=== PATIENT | female | born 1960 | race African-American/Black ===

== ENCOUNTER 2016-12-21 19:02 | Emergency (ER) | payer MEDICAID ==
[~2016-12-21] VITALS: Ht 170.2 cm; Wt 74.4 kg
[2016-12-21 19:08] VITALS: BP 135/84
[2016-12-21] MEDS ORDERED: Ketorolac 60mg Inj IM ONE (19:30)
[2016-12-21 20:57] VITALS: BP 123/111
--- NOTE | 2016-12-21 20:58 | Emergency Room Report ---
History of Present Illness General Chief Complaint: Multiple Trauma/Fall Source: Patient, EMS Present Illness HPI The patient was shopping in a grocery store and slipped on a liquid on the floor and fell onto her left knee. She states she has pain in her knee with movement. She fell onto her buttocks but has no pain. She does not have a head injury or head trauma. She has no other complaints. Allergies: Coded Allergies: No Known Allergies (Unverified , 12/21/16) Patient History Past Medical History: see triage record, HTN Social History: Denies: alcohol use, drug use, smoking Last Menstrual Period: 2003 Reviewed Nursing Documentation: PMH: Agreed, PSxH: Agreed Nursing Documentation-PMH Past Medical History: No History, Except For Hx Hypertension: Yes History Of Psychiatric Problem: Yes - Depression Review of Systems All Other Systems: negative except mentioned in HPI Physical Exam Vital Signs Date Time Temp Pulse Resp B/P Pulse Ox O2 Delivery O2 Flow Rate FiO2 12/21/16 18:59 99.0 78 16 135/84 98 Room Air Sp02 EP Interpretation: reviewed, normal General Appearance: no apparent distress, alert, GCS 15, non-toxic Head: normocephalic, atraumatic Eyes: bilateral eye PERRL, bilateral eye normal inspection ENT: hearing grossly normal, normal pharynx, no angioedema, normal voice Neck: full range of motion, supple/symm/no masses Respiratory: chest non-tender, lungs clear, normal breath sounds, speaking full sentences Cardiovascular #1: regular rate, rhythm, no edema Gastrointestinal: normal bowel sounds, non tender, soft, non-distended, no guarding, no rebound Rectal: deferred Musculoskeletal: back normal, normal range of motion, other - TTP over the L. patella. Neurologic: alert, oriented x3, responsive, motor strength/tone normal, sensory intact, speech normal Psychiatric: judgement/insight normal, memory normal, mood/affect normal, no suicidal/homicidal ideation Skin: normal color, no rash, warm/dry, well hydrated Medical Decision Making Diagnostic Impression: Primary Impression: Knee contusion Additional Impression: Knee strain ER Course This patient has a clinical presentation consistent with a contusion and knee strain. X-ray shows no fracture or abnormality. The patient was instructed on supportive care with ice and anti-inflammatories. I also gave the patient a knee immobilizer and crutches. She is instructed to followup with orthopedics if she continues to have pain. I did not identify an emergency medical condition. I warned the patient that plain x-rays have a significant false- negative rate. Factors, significant soft tissue injuries, and other pathology may be present even though not seen on x-ray. Injuries serious enough to ultimately require surgery may be present with normal x-rays. This can occur because some fractures or not initially visible on plain film x-rays or, rarely , the radiologist may discover a subtle fracture that I missed on my preliminary read. It was explained that close outpatient followup is required to evaluate this possibility. If all symptoms resolve or improve significantly in the coming weeks, no further testing is needed. However, if the pain/ symptoms persist, additional studies such as MRI/CT or repeat x-ray would be needed to rule out the possibility of serious soft tissue injury. The patient agreed to followup as directed. Other X-Ray Diagnostic Results Other X-Ray Diagnostic Results : X-Ray ordered: L. knee # of Views/Limited Vs Complete: 3 View Indication: Pain EP Interpretation: Yes Interpretation: no dislocation, no soft tissue swelling, no fractures Impression: No acute disease Interpreting ER Provider: Melodie Last Vital Signs Date Time Temp Pulse Resp B/P Pulse Ox O2 Delivery O2 Flow Rate FiO2 12/21/16 19:08 99.0 16 135/84 98 Room Air 12/21/16 18:59 78 Disposition: HOME, SELF-CARE Condition: Improved FANNIE GENAO D.O. Dec 21, 2016 20:58
[2016-12-21] MEDS ORDERED: IBUPROFEN600 MG ORAL (21:03)
[2016-12-21 21:46] VITALS: BP 139/83
--- NOTE | 2016-12-22 09:14 | Diagnostic Imaging Report ---
Indication: Trauma with pain Technique: XRAY KNEE THREE VIEWS LEFT Comparison: None. Findings: There is mild spurring of the medial joint compartment. Alignment is intact. No fracture. No evidence of bone destruction. There is no effusion. Impression: Minimal degenerative change. Otherwise negative.
== END 2016-12-21 21:35 | disposition home or self-care (01) ==
LOC: EDBD 19:02 → EMR 20:52
DX: S86.812A Strain of other muscle(s) and tendon(s) at lower leg level, left leg, initial encounter (principal); S80.02XA Contusion of left knee, initial encounter; W01.0XXA Fall on same level from slipping, tripping and stumbling without subsequent striking against object, initial encounter; Y92.009 Unspecified place in unspecified non-institutional (private) residence as the place of occurrence of the external cause; I10 Essential (primary) hypertension; F32.9 Major depressive disorder, single episode, unspecified
CPT/HCPCS: 96372; 99283